=== PATIENT | male | born 2000 | race Caucasian/White ===

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

== ENCOUNTER 2021-04-28 02:08 | Emergency (ER) | payer SELFPAY ==
[~2021-04-28] VITALS: Ht 185.4 cm; Wt 108.9 kg
--- NOTE | 2021-04-28 02:30 | NUR ---
BIBS FOR C/O L SIDED CP AND LUE NUMBNESS SINCE 1800. PT ALERT AND ORIENTED X4 BREATHING EVEN AND UNLABORED. CHANGED INTO GOWN AND PLACED ON CURING ROOM SUPERVISOR AND PULSE OX. BREATHING EVEN AND UNLABORED AND ALL V/S STABLE.
[2021-04-28] MEDS ORDERED: LABETALOL HCL IV 100MG VIAL ONE (02:42)
--- NOTE | 2021-04-28 02:49 | NUR ---
LINE INSTALLATION SUPERVISOR AT PT'S BEDSIDE
[2021-04-28] MEDS ORDERED: LABETALOL HCL IV 100MG VIAL IV ONE (03:00)
[2021-04-28 03:01] LABS: BASOPHILS # (AUTO) 0.1 K/uL (0.0-0.2); BASOPHILS % (AUTO) 0.6 % (0.0-2.0); EOSINOPHILS % (AUTO) 1.6 % (0.0-6.0); HEMATOCRIT 44 % (39-51); HEMOGLOBIN 14.9 g/dL (13.5-17.5); LYMPHOCYTES # (AUTO) 2.7 K/uL (0.8-4.8); LYMPHOCYTES % (AUTO) 23.3 % (20.0-44.0); MEAN CORPUSCULAR HGB CONC 34 g/dl (31.0-36.0); MEAN CORPUSCULAR VOLUME 80 fL (80-96); MONOCYTES # (AUTO) 0.7 K/uL (0.1-1.30); MONOCYTES % (AUTO) 5.7 % (2.0-12.0); NEUTROPHILS # (AUTO) 7.9 K/uL (1.8-8.9); NEUTROPHILS % (AUTO) 68.8 % (43.0-81.0); PLATELET COUNT (AUTO) 320 K/uL (150-450); RED BLOOD CELL COUNT(AUTO) 5.49 MIL/uL (4.5-6.0); WHITE BLOOD COUNT (AUTO) 11.5 K/uL (4.3-11.0)
[2021-04-28 03:25] LABS: BILIRUBIN,DIRECT 0.1 mg/dL (0.0-0.2); BILIRUBIN,TOTAL 0.3 mg/dL (0.2-1.0); CALCIUM, SERUM 9.5 mg/dL (8.5-10.1); POTASSIUM 3.7 mmol/L (3.5-5.1)
[2021-04-28 03:26] LABS: ALBUMIN 4.2 g/dL (3.4-5.0); TOTAL PROTEIN, SERUM 8.2 g/dL (6.4-8.2)
--- NOTE | 2021-04-28 03:33 | NUR ---
PT TAKEN TO AND RETURNED FROM CT SCAN VIA PANKAJ
[2021-04-28] MEDS ORDERED: METO-357 PO (03:55)
--- NOTE | 2021-04-28 04:06 | NUR ---
Patient discharged to home in stable condition. Written and verbal after care instructions given. Patient verbalizes understanding of instruction. IV line discontinued and 2x2 gauze applied to site. Pt ambulated with steady gait and left ER in stable condition.
[2021-04-28 05:02] VITALS: BP 135/72
== END 2021-04-28 04:11 | disposition home or self-care (01) ==
LOC: ER 02:10
DX: I16.0 Hypertensive urgency (principal); F17.200 Nicotine dependence, unspecified, uncomplicated; Z90.49 Acquired absence of other specified parts of digestive tract
CPT/HCPCS: 36415; 70450; 71045; 80048; 80076; 85025; 93005; 96374; 99285; J3490